=== PATIENT | male | born 1975 | race African-American/Black ===

== ENCOUNTER 2016-05-09 22:22 | Emergency (ER) | payer OTHER ==
[~2016-05-09] VITALS: Ht 172.7 cm; Wt 81.9 kg
[2016-05-09] MEDS ORDERED: MOTRIN600 MG PO (23:15)
[2016-05-09 23:49] VITALS: BP 129/74
== END 2016-05-09 23:51 | disposition home or self-care (01) ==
LOC: EXP 22:22 → EME 22:22 → EXP 23:51
DX: S63.92XA Sprain of unspecified part of left wrist and hand, initial encounter (principal); X50.9XXA Other and unspecified overexertion or strenuous movements or postures, initial encounter; Y99.0 Civilian activity done for income or pay
CPT/HCPCS: 99281; 99283